=== PATIENT | male | born 1950 | race Caucasian/White ===

== ENCOUNTER → 2016-12-14 | Day surgery (SDC) | payer OTHER ==
[~2016-12-14] MED LIST: DIAZEPAM PO; LORTAB 10/500 T1 TAB PO; ZOLOFT PO
--- NOTE | ~2016-12-14 | OR ---
Unit #: [id number] #: [id number] Patient: FRANKI MONET [id number] [address] [id number] MR#: [id number] NAME: FRANKI MONET ROOM: Date of Procedure: 12/14/2016 Admission Date: 12/14/2016 Surgeon: Maciej Mason M.D. : 1950 Attending Physician: aMciej Mason M.D. Referring Physician: Maciej Mason M.D. Primary Care Physician: Shahbaz Oakes M.D. OPERATIVE REPORT PREOPERATIVE DIAGNOSES 1. Degenerative disk disease with myelopathy. 2. Back pain. 3. Radiculopathy. 4. Spinal stenosis. POSTOPERATIVE DIAGNOSES 1. Degenerative disk disease with myelopathy. 2. Back pain. 3. Radiculopathy. 4. Spinal stenosis. PROCEDURE PERFORMED Lumbar epidural steroid injection with fluoroscopic guidance for needle localization. HISTORY The patient is a 66-year-old male with return of back and lower extremity pains associated with previously mentioned diagnosis. He is not a surgical candidate. He has failed to fully settle with medical rehabilitative management. He has done very well with p.r.n. epidural steroid injections. Last was done about a year and a half ago. She ultimately did well for somewhat over a year or so. Based on history, pathology, symptomatology, response to treatment, plan is to repeat epidural steroid injection today. DESCRIPTION OF PROCEDURE The patient was placed in the seated position. Standard monitors were applied. Sterile prep and drape of the lumbar area was performed. The skin then at the L4-L5 level was localized with 1% lidocaine. An 18-gauge TopRealty needle was then advanced via loss of resistance technique and fluoroscopic guidance in toward the epidural space. After confirming proper needle tip positioning with fluoroscopy and radiographic contrast, a dose of 80 mg of Depo-Medrol and 4 mL of 0.125% bupivacaine were deposited. The patient tolerated the procedure otherwise well and was discharged to the recovery room in stable condition. Dictated by... Maciej Mason M.D. P/modl Unit #: [id number] #: [id number] Patient: FRANKI MONET TD: 12/15/2016 02:42 JOB #: [id number] OPERATIVE REPORT X Maciej Mason MD X PROCEDURE OPERATIVE NOTE
== END | disposition home or self-care (01) ==
LOC: CCSC 08:17
DX: M51.06 Intervertebral disc disorders with myelopathy, lumbar region (principal); M51.16 Intervertebral disc disorders with radiculopathy, lumbar region; M48.06 Spinal stenosis, lumbar region
CPT/HCPCS: J1040; J2250